=== PATIENT | female | born 1955 | race Caucasian/White ===

== ENCOUNTER → 2023-12-16 14:24 | Outpatient (REF) | payer MEDICARE, BC, SELFPAY | LOC: WDC 14:24 | PROVIDERS: ATTENDING PHYSICIAN Internal Medicine | DX: R92.8 Other abnormal and inconclusive findings on diagnostic imaging of breast (principal) | CPT/HCPCS: 76642 ==

== ENCOUNTER → 2024-06-16 11:31 | Outpatient (REF) | payer MEDICARE, BC, SELFPAY | LOC: WDC 11:31 | PROVIDERS: ATTENDING PHYSICIAN Internal Medicine; FAMILY PHYSICIAN Surgery | DX: Z12.31 Encounter for screening mammogram for malignant neoplasm of breast (principal) | CPT/HCPCS: 77063; 77067 ==

== ENCOUNTER → 2024-07-13 13:13 | Outpatient (REF) | payer MEDICARE, BC, SELFPAY | LOC: MRI 3T 13:13 | PROVIDERS: ATTENDING PHYSICIAN Internal Medicine | DX: N60.91 Unspecified benign mammary dysplasia of right breast (principal); N60.92 Unspecified benign mammary dysplasia of left breast | CPT/HCPCS: 77049; A9585 ==

== ENCOUNTER → 2025-04-29 12:45 | Outpatient (REF) | payer MEDICARE, BC, SELFPAY | LOC: WDC 12:45 | PROVIDERS: ATTENDING PHYSICIAN Nurse Practitioner Acute Care; FAMILY PHYSICIAN Internal Medicine | DX: R92.333 Mammographic heterogeneous density, bilateral breasts (principal) | CPT/HCPCS: 76641 ==

== ENCOUNTER → 2025-06-09 16:04 | Outpatient (REF) | payer MEDICARE, BC, SELFPAY | LOC: WDC 16:04 | PROVIDERS: ATTENDING PHYSICIAN Nurse Practitioner Acute Care; FAMILY PHYSICIAN Internal Medicine | DX: Z12.31 Encounter for screening mammogram for malignant neoplasm of breast (principal) | CPT/HCPCS: 77063; 77067 ==